=== PATIENT | male | born 2000 | race African-American/Black ===

== ENCOUNTER 2025-02-16 21:16 | Emergency (ER) | payer SELFPAY ==
[~2025-02-16] VITALS: Ht 180.3 cm; Wt 73.0 kg
[2025-02-16 21:33] VITALS: O2SAT 98
[2025-02-16] MEDS ORDERED: HYDR-4233 TP (23:12)
[2025-02-16 23:54] VITALS: BP 112/73; PULSE 65; RESP 17; TEMP 36.9; O2SAT 100
== END 2025-02-16 23:53 | disposition home or self-care (01) ==
LOC: ER 21:37
DX: R21 Rash and other nonspecific skin eruption (principal)
CPT/HCPCS: 99282; 99283